=== PATIENT | male | born 1990 | race Caucasian/White ===

== ENCOUNTER 2017-01-13 08:15 | Emergency (ER) | payer BC ==
[2017-01-13 08:43] VITALS: BP 127/66
--- NOTE | 2017-01-13 09:33 | RAD ---
Indication: RIGHT knee pain following twisting injury one month ago with recent worsening. Comparison: None. Technique: RIGHT knee: AP, tunnel, lateral, sunrise views. Report: Negative for effusion, fracture, malalignment, joint space narrowing, or abnormal soft tissue contour. IMPRESSION: Negative exam.
--- NOTE | 2017-01-13 14:05 | UC ---
Cristiano Castro Claudia, scribed for Raiza Mccollum MD on 01/13/17 at 0918 . Lower Extremity/Ankle HPI - HPI Summary HPI Summary: 27 year old male presents to the [facility] with right knee pain for 1 month. He notes pain over the medial aspect of the rigjht knee, especially when he lifts his foot off the ground. Pt notes sudden onset of pain occurred about 1 month ago when he twisted it while paying soccer with his nephew. He notes some valgus load to the right knee during the mechanism of injury. The pt states some aggravating pain with ambulation and movement. He notes that he has been wearing a copper compression brace which somewhat alleviates it but when he takes it off it causes more pain, as well as a "popping" sensation with ambulation. Pt denies any previous trauma to his right knee. He also denies any ankle pain. The pt states that the pain is somewhat intermittent but worsened today, bringing him into [facility]. He denies any associated Sx of fever. Pt is able to ambulate to . - History of Current Complaint Chief Complaint: UCLowerExtremity Stated Complaint: LEG INJURY Time Seen by Provider: 01/13/17 08:44 Hx Obtained From: Patient Onset/Duration: Sudden Onset, Lasting Weeks, Still Present Aggravating Factor(s): Standing, Ambulation - Allergies/Home Medications Allergies/Adverse Reactions: Allergies Allergy/AdvReac Type Severity Reaction Status Date / Time No Known Allergies Allergy Verified 03/17/16 15:16 Home Medications: Home Medications Clindamycin CAP* 300 mg PO Q6HR 01/13/17 [History Confirmed 01/13/17] Ibuprofen 800 mg PO Q8HR 01/13/17 [History Confirmed 01/13/17] PMH/Surg Hx/FS Hx/Imm Hx Previously Healthy: Yes Endocrine History Of: Denies: Diabetes, Thyroid Disease, Hyperthyroidism, Hypothyroidism, Dyslipidemia Cardiovascular History Of: Denies: Cardiac Disorders, Hypertension, Pacemaker/ICD, Myocardial Infarction , Congestive Heart Failure, Atrial Fibrillation, Deep Vein Thrombosis, Bleeding Disorders Respiratory History Of: Denies: COPD, Asthma, Bronchitis, Pneumonia, Pulmonary Embolism GI/ History Of: Denies: Gastroesophageal Reflux, Ulcer, Gastrointestinal Bleed, Gall Bladder Disease, Kidney Stones, Diverticulitis, Renal Disease, Urosepsis Neurological History Of: Denies: TIA, CVA, Dementia, Seizures, Migraine Psychological History Of: Denies: Anxiety, Depression, Bipolar Disorder, Schizophrenia, Post Traumatic Stress Disorder Cancer History Of: Denies: Lung Cancer, Colorectal Cancer, Breast Cancer, Prostate Cancer, Cervical Cancer Other History Of: Negative For: HIV, Hepatitis B, Hepatitis C - Surgical History Surgical History: Yes Surgery Procedure, Year, and Place: right ear surgery - Family History Known Family History: Positive: None, Diabetes - Social History Occupation: Employed Full-time Lives: With Family Alcohol Use: Occasionally Substance Use Type: None Smoking Status (MU): Light Every Day Tobacco Smoker Type: Cigarettes Amount Used/How Often: 6 cig.day Cessation Counseling: Patient Advised to Stop - Immunization History Most Recent Tetanus Shot: 05/19/15 Review of Systems Constitutional: Negative - NO REPORTED FEVER Skin: Negative Eyes: Negative ENT: Negative Respiratory: Negative Cardiovascular: Negative Gastrointestinal: Negative Genitourinary: Negative Motor: Negative Neurovascular: Negative Musculoskeletal: Other: - RIGHT KNEE PAIN Neurological: Negative Psychological: Negative All Other Systems Reviewed And Are Negative: Yes Physical Exam Triage Information Reviewed: Yes Appearance: Well-Nourished Vital Signs: Initial Vital Signs Temp 97.9 F 01/13/17 08:23 Pulse 65 01/13/17 08:23 Resp 16 01/13/17 08:23 BP 127/66 01/13/17 08:23 Pulse Ox 100 01/13/17 08:23 Vital Signs Reviewed: Yes Eye Exam: Normal ENT Exam: Normal Neck exam: Normal Respiratory Exam: Normal - no dyspnea / no tachypnea Cardiovascular Exam: Normal - Nondiaphoretic. Heart rate normal. Good general color. Musculoskeletal Exam: Other - Tender medial knee, without point tomas tenderness. + crepitus. Able to straighten and bend but painful. No laxity with ant drw or med or lat rotaion. Distal NVI. No ankle tenderness. Post knee pain elicited with dorsiflexion. Psychological Exam: Normal Skin Exam: Normal - Additional Comments * Appearance: Well-Nourished * Eye Exam: Normal * ENT Exam: Normal * Respiratory Exam: Normal, no dyspnea, no tachypnea, normal respiratory rate * Cardiovascular Exam: Normal * Cardiovascular: Heart rate regular, good general skin color, good capillary refill * Abdominal Exam: Normal * Abdomen Description: Nontender, No Organomegaly, Soft * Bowel Sounds: Present * Musculoskeletal Exam: Normal * Musculoskeletal: Strength Intact PT AND DP 2+ GOOD DISTAL PULSES * Neurological Exam: Normal: nonfocal, grossly intact * Psychological Exam: Normal: conversing easily and appropriately * Skin Exam: Normal: no visible or reported rash Diagnostics - Radiology KNEE XRAY Xray Interpretation: No Acute Changes - NEGATIVE EXAM Radiology Interpretation Completed By: Radiologist Lower Extremity Course/Dx - Course Course Of Treatment: Xray report reviewed with pt. NAD. Sx have been progressing x 1 month, now worse. Suspect internal injury. D/w pt. He will benefit from orthopedic evaluation and management. Declines crutches, has them at home. Has a compression knee wrap at home. Will seek medical attention for worse or new problems. - Differential Dx/Diagnosis Provider Diagnoses: Knee sprain, suspect internal injury. Discharge - Discharge Plan Condition: Stable Disposition: HOME Prescriptions: Ibuprofen TAB* [Motrin TAB* 800 MG] 800 mg PO Q8H PRN #30 tab PRN Reason: Pain Patient Education Materials: Knee Sprain (ED) Referrals: [facility] [place] [facility]IAN REFERRAL [Outside] (USE THIS A RESOURCE FOR FINDING A PRIMARY CARE PROVIDER ) Ryder Davis MD [Medical Doctor] - 2 Days Additional Instructions: PLEASE FOLLOW-UP WITH THE ORTHOPEDIST in the next week. TAKE IBUPROFEN NEEDED FOR THE DISCOMFORT. PLEASE DO NOT EXCEED 3 DOSES DAILY. Drink plenty of water. Knee wrap may be helpful. Elevate as much as possible. Seek medical attention for worse or new problems. Follow up with a primary care physician as soon as you are able. The documentation as recorded by the Cristiano ramirez Claudia accurately reflects the service I personally performed and the decisions made by me, Raiza Mccollum MD.
== END 2017-01-13 09:52 | disposition home or self-care (01) ==
LOC: UCEAST 08:15
DX: S83.91XA Sprain of unspecified site of right knee, initial encounter (principal); X50.0XXA Overexertion from strenuous movement or load, initial encounter; Y93.66 Activity, soccer
CPT/HCPCS: 99212; G0463